=== PATIENT | female | born 1990 | race Caucasian/White ===

== ENCOUNTER 2016-06-28 09:12 | Outpatient (CLI) | payer OTHER | END 2016-06-28 09:13 | disposition home or self-care (01) | LOC: NC 09:12 | PROVIDERS: ATTEND Nurse Practitioner Family | DX: F50.02 Anorexia nervosa, binge eating/purging type (principal); Z71.3 Dietary counseling and surveillance; D64.9 Anemia, unspecified; Z68.1 Body mass index [BMI] 19.9 or less, adult ==